=== PATIENT | female | born 1980 | race Caucasian/White ===

== ENCOUNTER 2017-08-21 09:24 | Emergency (ER) | payer OTHER ==
[2017-08-21 10:07] VITALS: BP 145/85
[2017-08-21] MEDS ORDERED: Ibuprofen TAB* 600 MG PO ONE (10:38)
--- NOTE | 2017-08-21 10:43 | UC ---
UC General HPI - HPI Summary HPI Summary: Patient arabella [place], she did drive and was experiencing pain in the left flank, has had some abdominal cramping, she developed a fever and BARRETT felt like" she got hit by a bus" last night, fever of 102.0 - History of Current Complaint Chief Complaint: UCGeneralIllness Stated Complaint: FEVER,ACHY,SIDE PAIN Time Seen by Provider: 08/21/17 10:32 Hx Obtained From: Patient Hx Last Menstrual Period: 07/30/17 Onset/Duration: Sudden Onset, Lasting Days Timing: Constant Onset Severity: Moderate Current Severity: Severe Associated Signs & Symptoms: Positive: Back Pain, Dysuria, Fever, Headache, Nausea - Allergy/Home Medications Allergies/Adverse Reactions: Allergies Allergy/AdvReac Type Severity Reaction Status Date / Time No Known Allergies Allergy Verified 08/24/17 09:15 PMH/Surg Hx/FS Hx/Imm Hx Previously Healthy: Yes - Surgical History Surgical History: Yes Surgery Procedure, Year, and Place: HX KIDNEY STENTS, LITHOTRIPSY, 01/2013, . URETERAL STENT LEFT 01/19/14, [facility] [place] - Family History Known Family History: Positive: Hypertension - Social History Alcohol Use: Rare Alcohol Amount: 1 PER MONTH Substance Use Type: None Smoking Status (MU): Never Smoked Tobacco - Immunization History Most Recent Influenza Vaccination: none 2017 Review of Systems Constitutional: Fever, Fatigue Skin: Negative Eyes: Negative ENT: Negative Respiratory: Negative Cardiovascular: Negative Gastrointestinal: Abdominal Pain, Nausea Genitourinary: Dysuria, Hematuria Motor: Negative Neurovascular: Negative Musculoskeletal: Negative Neurological: Negative Psychological: Negative Is Patient Immunocompromised?: No All Other Systems Reviewed And Are Negative: Yes Physical Exam Triage Information Reviewed: Yes Appearance: Well-Nourished, Ill-Appearing, Pain Distress Vital Signs: Initial Vital Signs Temp 99.6 F 08/21/17 10:01 Pulse 108 08/21/17 10:01 Resp 16 08/21/17 10:01 BP 145/85 08/21/17 10:01 Pulse Ox 99 08/21/17 10:01 Vital Signs Reviewed: Yes Eye Exam: Normal Eyes: Positive: Conjunctiva Inflamed ENT: Positive: Pharynx normal, TMs normal Dental Exam: Normal Neck exam: Normal Neck: Positive: Supple, Nontender, Enlarged Nodes @ - bilateral cervical Respiratory: Positive: Chest non-tender, Lungs clear, Normal breath sounds Cardiovascular Exam: Normal Cardiovascular: Positive: No Murmur, Pulses Normal, Tachycardia Abdomen Description: Positive: Nontender, No Organomegaly, Soft, CVA Tenderness (R) - neg, CVA Tenderness (L) - pos Bowel Sounds: Positive: Present Musculoskeletal Exam: Normal Musculoskeletal: Positive: Strength Intact, ROM Intact, No Edema Neurological Exam: Normal Neurological: Positive: Alert, Muscle Tone Normal Psychological Exam: Normal Skin Exam: Normal Course/Dx - Course Course Of Treatment: hx obtained, exam performed ,meds reviewed, flu swab obtained, UA positive for blood and PRO, CT of abd pelvis performed, large kidney stone and left hydronephosis noted, Patient has a Urologist that follows her. recommend calling today for follow up, patient is in agreement - Differential Dx - Multi-Symptom Provider Diagnoses: fever,. renal stone. left hydronephrosis Discharge - Discharge Plan Condition: Stable Disposition: HOME Patient Education Materials: Kidney Stones (ED), Hydronephrosis (ED) Referrals: No Primary Care Phys,NOPCP [Primary Care Provider] - Additional Instructions: 1. take the medication as prescribed. 2. Follow up with your urologist seema, if pain becomes more severe or you develop worsening symptoms, report to ER
--- NOTE | 2017-08-21 11:59 | RAD ---
CLINICAL HISTORY: Left flank pain and fever. Relevant surgical history includes prior lithotripsy and left ureteral stent. COMPARISON: Most recent comparison CT is dated January 18, 2014 TECHNIQUE: Noncontrast CT examination of the abdomen and pelvis from the lung bases through the initial tuberosities. FINDINGS: VISUALIZED LUNG BASES: The visualized lung bases are grossly clear. There is no pleural effusion. ABDOMEN AND PELVIS: Evaluation of the solid organs and vasculature is limited without intravenous contrast. The liver, spleen, pancreas and adrenal glands are grossly normal in appearance. The gallbladder is normal. There is a nonobstructing punctate calcification at the upper pole of the right kidney. At the mid-level left ureter there is a calcification exhibiting a maximum axial dimension of 6 mm and a maximum cephalocaudal dimension of 8 mm (axial image 124 and coronal image 44). There is moderate left-sided hydronephrosis with perinephric stranding. Additional calcifications are seen in the left kidney, the largest a 6 mm calcification at the mid-level kidney. There are no calcifications seen in the right ureter, urinary bladder or the more distal left ureter. Evaluation of the gastrointestinal tract is limited without oral contrast. The small and large bowel are not distended.The patient's normal appendix is identified in the right lower quadrant with gas in the lumen (coronal image 48). There is no gross retroperitoneal or mesenteric lymphadenopathy. At the left adnexa there is a fluid density structure measuring up to 3.2 cm most consistent with a dominant ovarian follicle in a woman of this age. The abdominal aorta and iliac arteries are normal in course and diameter. Degenerative changes include multilevel loss of intervertebral disc height involving the lower thoracic and lumbar spine.There are no sinister bone lesions. IMPRESSION: At the mid-level left ureter there is a renal calculus measuring 8 mm in largest dimension with ipsilateral hydroureter nephrosis. There are additional bilateral nonobstructing renal calculi, more severe on the left than the right.
== END 2017-08-21 12:22 | disposition home or self-care (01) ==
LOC: UCCORT 09:24
DX: N13.30 Unspecified hydronephrosis (principal); N20.0 Calculus of kidney; R50.9 Fever, unspecified; Z32.02 Encounter for pregnancy test, result negative
CPT/HCPCS: 74176; 81003; 84702; 87502; 99202; A9270-GY; G0463

== ENCOUNTER 2017-08-21 14:29 | Observation (INO) | payer OTHER ==
[2017-08-21 15:45] LABS: Hematocrit 44 % (35-47); Hemoglobin 14.8 g/dl (12.0-16.0); Mean Corpuscular HGB Conc 33 g/dl (31-36); Mean Corpuscular Hemoglobin 29 pg (27-31); Mean Corpuscular Volume 88 fL (80-97); Mean Platelet Volume 9 um3 (7.4-10.4); Red Blood Count 5.02 10^6/ul (4.0-5.4); Red Cell Distribution Width 13 % (10.5-15); White Blood Count 13.3 10^3/ul (3.5-10.8)
[2017-08-21] MEDS: NS 0.9% 1000 ML* 2,000 ML IV ONE (16:20)
[2017-08-21 16:22] LABS: ALT 13 U/L (7-52); AST 13 U/L (13-39); Albumin 4.7 g/dL (3.2-5.2); Alkaline Phosphatase 88 U/L (34-104); Anion Gap 8 mmol/L (2-11); BUN/Creatinine Ratio 12.8 (8-20); Blood Urea Nitrogen 12 mg/dL (6-24); C Reactive Protein 82.58 mg/L (< 5.00); CO2 Carbon Dioxide 25 mmol/L (22-32); Chloride 101 mmol/L (101-111); EGFR African American 86.7 (>60); EGFR Non-African American 67.4 (>60); Globulin 3.6 g/dL (2-4); Glucose 101 mg/dL (70-100); Lipase 14 U/L (11.0-82.0); Potassium 3.7 mmol/L (3.5-5.0); Sodium 134 mmol/L (133-145); Total Protein 8.3 g/dL (6.4-8.9)
[2017-08-21] MEDS ORDERED: cefTRIAXone(*) 2 GM in NS 0.9% 50 ML* 50 ML IVPB ONE (16:23)
[2017-08-21] MEDS ORDERED: Gentamicin ADULT (*) 40 MG/ML VIAL IVPB ONE (16:23)
[2017-08-21] MEDS ORDERED: Metoclopramide IV* 5 MG/ML 2 ML VIAL IV SLOW PU ONE (16:55)
[2017-08-21] MEDS ORDERED: Famotidine IV* 10 MG/ML 2 ML (20 mg) IV ONE (16:55)
[2017-08-21] MEDS ORDERED: Buffered Lidocaine 0.9% SYRIN* 5 ML/SYR SYRINGE INTRADERM ONE (16:55)
[2017-08-21] MEDS ORDERED: GENTAMICIN IVPB ONE ×2 (17:00)
[2017-08-21] MEDS ORDERED: [UNRECOGNIZED DRUG - OTHER] IVPB ONE ×2 (17:00)
[2017-08-21] MEDS ORDERED: Acetaminophen TAB* 325 MG PO PRN (17:03)
[2017-08-21] MEDS ORDERED: Ondansetron INJ* 2 MG/ML VIAL IV PRN ×2 (17:03→18:43)
[2017-08-21] MEDS ORDERED: Morphine INJ* 4 MG/ML 1 ML CARPUJECT IV PRN (17:03)
[2017-08-21] MEDS ORDERED: cefTRIAXone VIAL(*) 1,000 MG in NS 0.9% 50 ML* 50 ML IVPB SCH (17:04)
[2017-08-21] MEDS ORDERED: Metoclopramide IV* 5 MG/ML 2 ML VIAL ONE (17:08)
[2017-08-21] MEDS ORDERED: Sodium Citrate/Citric Acid* 15 ML UDC ONE ×2 (17:08→18:02)
[2017-08-21] MEDS ORDERED: cefTRIAXone(*) 2 GM ADDV.VIAL IVPB ONE (17:09)
[2017-08-21] MEDS ORDERED: Famotidine IV* 10 MG/ML 2 ML (20 mg) ONE (17:13)
[2017-08-21] MEDS ORDERED: NS 0.9% 1000 ML* 1,000 ML IV SCH ×2 (17:15)
[2017-08-21] MEDS ORDERED: Iohexol 180 (CONTRAST) 10 ML SDV IV ONE (17:49)
[2017-08-21] MEDS ORDERED: Gentamicin ADULT (*) 40 MG/ML VIAL ONE (17:54)
--- NOTE | 2017-08-21 18:01 | ED ---
Kelsie Zhong Alfonso, scribed for Ronald Olson MD on 08/21/17 at 1511 . Abdominal Pain/Female - HPI Summary HPI Summary: This patient is a 36 year old F presenting to [facility] referred from [facility] ([facility]) and Dr. Bowen (urologist) accompanied by a female with a chief complaint of sharp left-sided flank pain since one week ago. She had a CT A/P earlier today at [facility] with a radiologist impression of At the mid- level left ureter there is a renal calculus measuring 8 mm in largest dimension with ipsilateral hydroureter nephrosis. There are additional bilateral nonobstructing renal calculi, more severe on the left than the right. The patient rates the pain 6/10 in severity. Symptoms alleviated by nothing. Patient reports fever, chills, N/V, loss of appetite, headache, and urinary urgency. Patient denies cough, and chest congestion. Medications reviewed. Allergies reviewed. - History of Current Complaint Chief Complaint: EDFlankPain Stated Complaint: KIDNEY PAIN-POSS STONE Time Seen by Provider: 08/21/17 15:03 Hx Obtained From: Patient, Medical Records Hx Last Menstrual Period: 07/30/17 Onset/Duration: Gradual Onset, Lasting Weeks - 1, Still Present Timing: Constant Severity Currently: Moderate Pain Intensity: 6 Pain Scale Used: 0-10 Numeric Location: Flank - L Character: Sharp Alleviating Factor(s): Nothing Associated Signs and Symptoms: Positive: Other: - fever, chills, N/V, loss of appetite, headache, and urinary urgency. Patient denies cough, and chest congestion. Allergies/Adverse Reactions: Allergies Allergy/AdvReac Type Severity Reaction Status Date / Time No Known Allergies Allergy Verified 08/21/17 10:00 PMH/Surg Hx/FS Hx/Imm Hx Cardiovascular History: Denies: Other Cardiovascular Problems/Disorders Respiratory History: Denies: Other Respiratory Problems/Disorders GI History: Denies: Other GI Disorders History: Reports: Hx Kidney Stones - LEFT Musculoskeletal History: Denies: Other Musculoskeletal History Sensory History: Denies: Hx Contacts or Glasses, Hx Hearing Aid Opthamlomology History: Denies: Hx Contacts or Glasses Neurological History: Denies: Other Neuro Impairments/Disorders - Surgical History Surgery Procedure, Year, and Place: HX KIDNEY STENTS, LITHOTRIPSY, 01/2013, . URETERAL STENT LEFT 01/19/14, [facility] Hx Anesthesia Reactions: No Infectious Disease History: No Infectious Disease History: Denies: Traveled Outside the [place] in Last 30 Days - Family History Known Family History: Positive: Hypertension - Social History Alcohol Use: Rare Alcohol Amount: 1 PER MONTH Substance Use Type: Reports: None Smoking Status (MU): Never Smoked Tobacco Review of Systems Positive: Fever, Chills Positive: Other - Negative chest congestion. Negative: Cough Positive: Abdominal Pain - L flank, Vomiting, Nausea, Other - loss of appetite Positive: urgency Positive: Headache All Other Systems Reviewed And Are Negative: Yes Physical Exam - Summary Physical Exam Summary: General: mildly ill-appearing, mild pain distress Skin: warm, color reflects adequate perfusion, dry Head: normal Eyes: EOMI, JUAN ALBERTO ENT: normal Neck: supple, nontender Respiratory: CTA, breath sounds present Cardiovascular: Tachycardia Abdomen: soft, nontender abdomen, left CVA tenderness Bowel: present Musculoskeletal: normal, strength/ROM intact Neurological: normal, sensory/motor intact, A&O x3 Psychological: affect/mood appropriate Triage Information Reviewed: Yes Vital Signs On Initial Exam: Initial Vitals Temp Pulse Resp BP Pulse Ox 98.5 F 101 16 142/84 100 08/21/17 14:51 08/21/17 14:51 08/21/17 14:51 08/21/17 14:51 08/21/17 14:51 Vital Signs Reviewed: Yes Diagnostics - Vital Signs Vital Signs Temp Pulse Resp BP Pulse Ox 08/21/17 14:51 98.5 F 101 16 142/84 100 - Laboratory Lab Results: Lab Results 08/21/17 08/21/17 08/21/17 Range/Units 15:36 15:36 15:36 WBC 13.3 H (3.5-10.8) 10^3/ul RBC 5.02 (4.0-5.4) 10^6/ul Hgb 14.8 (12.0-16.0) g/dl Hct 44 (35-47) % MCV 88 (80-97) fL MCH 29 (27-31) pg MCHC 33 (31-36) g/dl RDW 13 (10.5-15) % Plt Count 205 (150-450) 10^3/ul MPV 9 (7.4-10.4) um3 Neut % (Auto) 85.8 H (38-83) % Lymph % (Auto) 8.2 L (25-47) % Bandera % (Auto) 5.5 (1-9) % Eos % (Auto) 0.1 (0-6) % Baso % (Auto) 0.4 (0-2) % Absolute Neuts (auto) 11.4 H (1.5-7.7) 10^3/ul Absolute Lymphs (auto) 1.1 (1.0-4.8) 10^3/ul Absolute Monos (auto) 0.7 (0-0.8) 10^3/ul Absolute Eos (auto) 0 (0-0.6) 10^3/ul Absolute Basos (auto) 0 (0-0.2) 10^3/ul Absolute Nucleated RBC 0 10^3/ul Nucleated RBC % 0 INR (Anticoag Therapy) 0.96 (0.89-1.11) APTT 25.4 L (26.0-36.3) seconds Sodium 134 (133-145) mmol/L Potassium 3.7 (3.5-5.0) mmol/L Chloride 101 (101-111) mmol/L Carbon Dioxide 25 (22-32) mmol/L Anion Gap 8 (2-11) mmol/L BUN 12 (6-24) mg/dL Creatinine 0.94 (0.51-0.95) mg/dL Est GFR ( Amer) 86.7 (>60) Est GFR (Non-Af Amer) 67.4 (>60) BUN/Creatinine Ratio 12.8 (8-20) Glucose 101 H (70-100) mg/dL Lactic Acid (0.5-2.0) mmol/L Calcium 10.0 (8.6-10.3) mg/dL Total Bilirubin 0.50 (0.2-1.0) mg/dL AST 13 (13-39) U/L ALT 13 (7-52) U/L Alkaline Phosphatase 88 (34-104) U/L C-Reactive Protein 82.58 H (< 5.00) mg/L Total Protein 8.3 (6.4-8.9) g/dL Albumin 4.7 (3.2-5.2) g/dL Globulin 3.6 (2-4) g/dL Albumin/Globulin Ratio 1.3 (1-3) Lipase 14 (11.0-82.0) U/L Beta HCG, Quant < 0.60 mIU/mL 08/21/17 Range/Units 15:36 WBC (3.5-10.8) 10^3/ul RBC (4.0-5.4) 10^6/ul Hgb (12.0-16.0) g/dl Hct (35-47) % MCV (80-97) fL MCH (27-31) pg MCHC (31-36) g/dl RDW (10.5-15) % Plt Count (150-450) 10^3/ul MPV (7.4-10.4) um3 Neut % (Auto) (38-83) % Lymph % (Auto) (25-47) % Band[place] % (Auto) (1-9) % Eos % (Auto) (0-6) % Baso % (Auto) (0-2) % Absolute Neuts (auto) (1.5-7.7) 10^3/ul Absolute Lymphs (auto) (1.0-4.8) 10^3/ul Absolute Monos (auto) (0-0.8) 10^3/ul Absolute Eos (auto) (0-0.6) 10^3/ul Absolute Basos (auto) (0-0.2) 10^3/ul Absolute Nucleated RBC 10^3/ul Nucleated RBC % INR (Anticoag Therapy) (0.89-1.11) APTT (26.0-36.3) seconds Sodium (133-145) mmol/L Potassium (3.5-5.0) mmol/L Chloride (101-111) mmol/L Carbon Dioxide (22-32) mmol/L Anion Gap (2-11) mmol/L BUN (6-24) mg/dL Creatinine (0.51-0.95) mg/dL Est GFR ( Amer) (>60) Est GFR (Non-Af Amer) (>60) BUN/Creatinine Ratio (8-20) Glucose (70-100) mg/dL Lactic Acid 0.9 (0.5-2.0) mmol/L Calcium (8.6-10.3) mg/dL Total Bilirubin (0.2-1.0) mg/dL AST (13-39) U/L ALT (7-52) U/L Alkaline Phosphatase (34-104) U/L C-Reactive Protein (< 5.00) mg/L Total Protein (6.4-8.9) g/dL Albumin (3.2-5.2) g/dL Globulin (2-4) g/dL Albumin/Globulin Ratio (1-3) Lipase (11.0-82.0) U/L Beta HCG, Quant mIU/mL Result Diagrams: 08/21/17 15:36 08/21/17 15:36 Lab Statement: Any lab studies that have been ordered have been reviewed, and results considered in the medical decision making process. Abdominal Pain Fem Course/Dx - Course Course Of Treatment: DISCUSSED WITH DR BOWEN, UROLOGY. ABX STARTED. ADMIT PT TO OR FOR STENT. NO CRITICAL CARE TIME. - Diagnoses Provider Diagnoses: Kidney stone on left side, Fever - Provider Notifications Discussed Care Of Patient With: Leandro Bowen Time Discussed With Above Provider: 15:21 Instructed by Provider To: Other - Consulted Dr. Bowen (urologist) at 1521 regarding the patient's case. Consulted Dr. Duffy (hospitalist) 0151 who agrees to admit. Discharge - Discharge Plan Condition: Stable Disposition: ADMITTED TO [facility] documentation as recorded by the Kelsie sosa Alfonso accurately reflects the service I personally performed and the decisions made by me, Ronald Olson MD.
[2017-08-21] MEDS ORDERED: Midazolam* 1 MG/ML 5 ML VIAL (5 MG) ONE (18:10)
[2017-08-21] MEDS ORDERED: fentaNYL* 50 MCG/ML 5 ML VIAL (250 MCG VIAL) ONE (18:10)
[2017-08-21] MEDS ORDERED: Lidocaine 2% PF * 5 ML VIAL ONE (18:12)
[2017-08-21] MEDS ORDERED: Propofol* 10 MG/ML 20 ML BTL IV PUSH ONE (18:12)
[2017-08-21] MEDS ORDERED: Ketorolac INJ* 30 MG/ML 1 ML VIAL ONE (18:20)
[2017-08-21] MEDS ORDERED: fentaNYL* 50 MCG/ML 2 ML VIAL (100 MCG VIAL) IV PRN (18:43)
[2017-08-21] MEDS ORDERED: oxyCODONE TAB* 5 MG TAB PO PRN (18:43)
[2017-08-21] MEDS ORDERED: Acetaminophen IV 1GM/100ML * 100 ML IVPB ONE (18:43)
[2017-08-21] MEDS ORDERED: Acetaminophen IV 1GM/100ML * 100 ML ONE (18:43)
[2017-08-21] MEDS ORDERED: PROCHLORPERAZINE INJ 5 MG/ML 2 ML VIAL IV PRN (18:43)
--- NOTE | 2017-08-21 22:41 | HP ---
HISTORY AND PHYSICAL: DATE OF ADMISSION: 08/21/17 PRIMARY CARE PROVIDER: Unknown. CHIEF COMPLAINT: Left flank pain. HISTORY OF PRESENT ILLNESS: Ms. Yo is a 36-year-old female who has a known history of kidney stones, last being treated with lithotripsy approximately 2 years ago, who presents to the emergency room with complaints of left-sided flank pain that has been ongoing for approximately 1 week. The patient states that the evening prior to admission, she spiked a fever to 102.3. She has since felt very nauseous. In addition, her appetite has been very poor, eating only a few crackers and attempts toast earlier today. The patient states that currently she is feeling very chilled. The patient denies any significant dysuria however. PAST MEDICAL HISTORY: Kidney stones. PAST SURGICAL HISTORY: 1. Lithotripsy. 2. Uterine polyp removal. MEDICATIONS: None. ALLERGIES: No known drug allergies. FAMILY HISTORY: Mom is living, she is healthy; however, she too has a history of kidney stones. Dad is also living, he is also healthy. SOCIAL HISTORY: The patient is a nonsmoker. She drinks alcohol rarely. She works at the [employer]. She is . Her is in the service and is going to be deployed shortly. She has 1 child. She indicates that her mom, Fannie would be her healthcare proxy. REVIEW OF SYSTEMS: A complete 11-system review of systems is obtained. Pertinent positives and negatives are as per HPI and otherwise negative. PHYSICAL EXAMINATION GENERAL: The patient is a well-developed, young female, lying in the stretcher , appearing flushed in the face and warm to touch, but in no acute distress. VITAL SIGNS: Blood pressure 157/79, pulse 99, respirations 13, temp 98.5, O2 sat 99% on room air. HEENT: Pupils are equal, they are round. Extraocular muscles are intact. Oropharynx is clear. Oral mucosa is moist. There is no submandibular, cervical , or supraclavicular adenopathy. Thyroid is not enlarged. No thyroid nodules are noted. PULMONARY: Lungs are clear to auscultation bilaterally. CARDIAC: Normal S1 and S2. Regular rate and rhythm. No murmurs, rubs, or gallops. There is no lower extremity edema. ABDOMEN: Bowel sounds are present. Abdomen is soft, nontender, and nondistended. There is left flank tenderness. MUSCULOSKELETAL: There is no cyanosis or clubbing of the digits. There is full active range of motion of all 4 extremities. SKIN: Hot to touch. There are no rashes. NEURO: Cranial nerves II through XII are grossly intact. Sensation is intact to light touch throughout. Strength is 5/5 and symmetric in both upper and lower extremities bilaterally. PSYCH: The patient is alert. She is oriented x3. Affect appears appropriate. DIAGNOSTIC STUDIES/LAB DATA: WBC 13.3, hemoglobin 14.8, hematocrit 44, platelets 205. INR 0.96, PTT 25.4. Sodium 134, potassium 3.7, chloride 101, CO2 25, BUN 12, creatinine 0.94, glucose 101. Lactic acid 0.9. Calcium 10.0, bilirubin 0.5, AST 13, ALT 13, alk phos 88, CRP 82.58, albumin 4.7, lipase 14. Urinalysis from urgent care today reveals 1+ protein, trace ketones, 2+ blood, otherwise negative for leukocyte esterase and nitrites. CT abdomen and pelvis reveals a renal calculus measuring 8 mm in the largest dimension in the left midureter with ipsilateral hydroureter and nephrosis. There are additional bilateral nonobstructing renal calculi more severe on the left than the right. ASSESSMENT AND PLAN: Ms. Yo is a 36-year-old female with a history of kidney stones in the past that have required lithotripsy, who presents to the emergency room with complaints of approximately 1-week of ongoing left-sided flank pain, though spiking of fever to 102.3 the day prior to admission, now feeling quite chilled and found to have an elevated white blood cell count and obstructing left ureteral calculus. 1. Left obstructing ureteral calculus. The patient is going to be taken urgently to the operating room by Dr. Bowen for stent placement. She will likely need definitive therapy of her stone at a later date. Given the patient' s history of fever to 102.3 the night prior to admission and currently she feels quite warm, though very chilled. I do feel it is best to admit the patient to the hospital under observation status following her procedure. We will await urine culture. The patient will receive gentamicin and ceftriaxone prior to going into the OR. She will then continue on ceftriaxone following this. I suspect, she will need full course of antibiotics following the stent placement. 2. DVT prophylaxis. According to the Adult Thrombosis Prophylaxis Risk Factor Assessment Guide, the patient has a total risk factor score of 1, making her low risk. SCDs will be utilized as DVT prophylaxis. 3. Code status is full and again, the patient indicates that her mom is her healthcare proxy. TIME SPENT: Fifty minutes were spent admitting this patient. [id number]/[facility] #: [id number] XUAN
[2017-08-21] MEDS ORDERED: SUMAtriptan TAB* 50 MG PO ONE (22:48)
[2017-08-21 23:39] LABS: Urine Bacteria Absent (Absent); Urine Bilirubin Negative (Negative); Urine Glucose Negative (Negative); Urine Nitrite Negative (Negative)
--- NOTE | 2017-08-22 00:51 | CONS ---
UROLOGY CONSULTATION: DATE OF CONSULT: 08/21/17 REQUESTING PHYSICIAN: Dr. Ronald Olson. DIAGNOSES: 1. Obstructing calculus, left ureter. 2. Urosepsis. HISTORY OF PRESENT ILLNESS: Tory Yo is a 36-year-old lady with a history of recurrent renal calculi. I had last seen her over 2 years ago and because of relocation of her 's job, she had transferred out of [place]. She had left flank pain for the last several days and states that she had a temperature of 102.6 last night. She went to the [facility] in [place] this morning and was then transferred to the [facility] Emergency Room. In the emergency room, her temperature was normal, although she was slightly tachycardic. A CT scan done earlier today had revealed 8-mm obstructing calculus in the left mid ureter in addition to bilateral renal calculi. My plan was to proceed with urgent left stent insertion, possible ureteroscopy, but while she was in the holding area, her temperature was rechecked and was found to be 40.2 degree Celsius. This is consistent with sepsis and the plan is for urgent left stent insertion (to be followed at some point in the near future by lithotripsy) after appropriate treatment of the urinary infection. PAST MEDICAL HISTORY: Significant for: 1. Recurrent renal calculi. 2. Migraines. MEDICATIONS ON ADMISSION: Imitrex p.r.n. ALLERGIES: No known drug allergies. REVIEW OF SYSTEMS: She denies any chest pain or shortness of breath. There is no history of diabetes mellitus or any other major systemic illness. PHYSICAL EXAM: Reveals an obviously uncomfortable appearing young lady. Blood pressure is 170/92, heart rate 104 per minute, temperature 40.2 degrees Celsius. Cardiovascular Exam: Regular rate and rhythm, tachycardiac. S1 and S2. Lungs are clear bilaterally. Abdomen is soft with left flank tenderness. DIAGNOSTIC STUDIES/LAB DATA: I reviewed the labs and imaging studies and the overall picture is consistent with an obstructing left ureteral calculus with urosepsis. PLAN: Plan is for urgent left stent insertion (to be followed in near future by shockwave or laser lithotripsy depending on postoperative x-ray findings) after treatment of the urinary tract infection. [id number]/[facility] #: [id number] [facility]
[2017-08-22] MEDS ORDERED: Ibuprofen TAB* 600 MG PO ONE (03:38)
[2017-08-22 06:10] LABS: Hematocrit 36 % (35-47); Hemoglobin 11.9 g/dl (12.0-16.0); Mean Corpuscular HGB Conc 34 g/dl (31-36); Mean Corpuscular Hemoglobin 29 pg (27-31); Mean Corpuscular Volume 88 fL (80-97); Mean Platelet Volume 9 um3 (7.4-10.4); Red Blood Count 4.06 10^6/ul (4.0-5.4); Red Cell Distribution Width 13 % (10.5-15); White Blood Count 10.1 10^3/ul (3.5-10.8)
[2017-08-22 06:31] LABS: BUN/Creatinine Ratio 10.7 (8-20); Calcium 8.7 mg/dL (8.6-10.3); EGFR African American 112.4 (>60); EGFR Non-African American 87.4 (>60); Potassium 3.6 mmol/L (3.5-5.0)
[2017-08-22] MEDS ORDERED: cefTRIAXone VIAL(*) 1,000 MG in NS 0.9% 50 ML* 50 ML IVPB SCH (08:00)
[2017-08-22] MEDS ORDERED: SUMAtriptan TAB* 50 MG PO ONE (08:00)
--- NOTE | 2017-08-22 08:58 | OP ---
DATE OF OPERATION: 08/21/17 - ROOM #332 DATE OF : [age] years, female. SURGEON: Leandro Bowen MD ANESTHESIOLOGIST: Dr. Marmolejo ANESTHESIA: Intravenous sedation. PRE-OP DIAGNOSES: 1. Obstructing calculus, left ureter. 2. Bilateral renal calculi. 3. Urosepsis. POST-OP DIAGNOSES: 1. Obstructing calculus, left ureter. 2. Bilateral renal calculi. 3. Urosepsis. OPERATIVE PROCEDURE: 1. Cystoscopy. 2. Left retrograde pyelogram. 3. Left ureteral calculus manipulation. 4. Left stent insertion. COMPLICATIONS: None. POSTOPERATIVE CONDITION: Stable. STENT USED: A 7-[place] stent, left ureter. INDICATIONS: Tory Yo is a 36-year-old lady with a history of recurrent bilateral renal calculi. She was recently evaluated for left flank pain and was noted to have an obstructing calculus in the left mid ureter in addition to bilateral renal calculi. In addition, in the preoperative holding area, her temperature increased to over a 104, and she is now being brought in for urgent left stent insertion to be followed in the future by lithotripsy. DESCRIPTION OF PROCEDURE: After induction of intravenous sedation, the patient was placed in dorsal lithotomy position. Sequential compression devices were in place and functioning. Initial cystoscopy revealed a normal appearing bladder. Clear efflux of urine was noted from the right orifice. There was no efflux noted from the left orifice. obstruction. A guidewire was introduced into the left ureter. Retrograde pyelogram revealed fullness of the left collecting system. I only wanted to do a limited retrograde in an effort to minimize bacteremia. The open ended catheter was advanced beyond the obstructing calculus into the renal pelvis and urine was obtained from the renal pelvis and sent for culture. The calculus was carefully manipulated slightly proximally to facilitate placement of the stent, and a 7-[place] stent was introduced and positioned under fluoroscopy with good proximal and distal positioning obtained. The patient tolerated the procedure satisfactorily and was transferred back to the recovery area in stable condition. [id number]/[facility] #: [id number] [facility]
--- NOTE | 2017-08-22 10:36 | RAD ---
INDICATION: Left ureteral stent placement COMPARISON: None FINDINGS: 7 seconds of fluoroscopy were provided for the urology department. Fluoroscopic spot imaging of the abdomen were obtained for operative control and show left ureteral stent placement in expected position. The collecting system is decompressed . CPT II Codes: 6045F (fluoro time doc)
--- NOTE | 2017-08-22 10:41 | RAD ---
INDICATION: Follow-up imaging in a patient with a left ureteral stent placement for stone COMPARISON: Intraoperative pyelography dated August 21, [address] abdomen and pelvis August 21, 2017 TECHNIQUE: A single AP view of the abdomen was obtained FINDINGS: The left ureteral stent is anatomically aligned in the AP projection. The 8 mm calcification identified at the mid-level left ureter on the previous CT examination is not definitely identified today. Small densities overlying the left collecting system appeared to correspond to the nonobstructing calculi seen on the prior CT. A round density immediately lateral to the distal loop of the stent correspond to a phlebolith seen on the previous CT. IMPRESSION: ANATOMIC ALIGNMENT OF LEFT URETERAL STENT.
--- NOTE | 2017-08-22 11:25 | PN ---
Subjective Date of Service: 08/22/17 Interval History: Pt is feeling quite a bit better. She had a fever with chills early this AM but has been fine since. She feels she can go home. Objective Active Medications: Acetaminophen (Tylenol Tab*) 650 mg PO Q4H PRN PRN Reason: PAIN Last Admin: 08/22/17 02:10 Dose: 650 mg Ceftriaxone Sodium 1,000 mg/ (Sodium Chloride) 50 mls @ 200 mls/hr IVPB Q24H COUNTS INCLUDE 234 BEDS AT THE [facility] Last Admin: 08/22/17 08:09 Dose: 200 mls/hr Lactated Ringer's (Lactated Ringers 1000 Ml Bag*) 1,000 mls @ 250 mls/hr IV PER RATE COUNTS INCLUDE 234 BEDS AT THE [facility] Last Admin: 08/22/17 07:53 Dose: 250 mls/hr Morphine Sulfate (Morphine Inj (Syringe)*) 4 mg IV Q4H PRN PRN Reason: PAIN Ondansetron HCl (Zofran Inj*) 4 mg IV Q6H PRN PRN Reason: NAUSEA Oxycodone HCl (Roxycodone Tab*) 5 mg PO ONCE PRN PRN Reason: PAIN - MODERATE Stop: 08/22/17 18:44 Vital Signs 08/21/17 08/21/17 08/21/17 18:38 19:00 19:09 Temperature 100.8 F 100.0 F Pulse Rate 105 99 Respiratory 16 16 Rate Blood Pressure 134/92 128/89 (mmHg) O2 Sat by Pulse 100 96 Oximetry 08/21/17 08/21/17 08/21/17 19:30 19:59 20:11 Temperature 100.4 F 98.8 F 98.8 F Pulse Rate 96 91 91 Respiratory 16 16 16 Rate Blood Pressure 129/83 134/76 134/76 (mmHg) O2 Sat by Pulse 94 96 96 Oximetry 08/21/17 08/21/17 08/21/17 21:09 22:13 22:35 Temperature 97.6 F 97.9 F Pulse Rate 88 91 Respiratory 16 16 16 Rate Blood Pressure 145/90 117/68 (mmHg) O2 Sat by Pulse 99 98 Oximetry 08/22/17 08/22/17 08/22/17 00:09 00:51 02:04 Temperature 99.1 F 99.2 F 101.5 F Pulse Rate 92 110 Respiratory 16 16 Rate Blood Pressure 144/63 157/73 (mmHg) O2 Sat by Pulse 99 100 Oximetry 08/22/17 08/22/17 08/22/17 03:16 04:58 06:23 Temperature 101.5 F 99.7 F 98.0 F Pulse Rate 106 110 95 Respiratory 18 16 Rate Blood Pressure 160/75 151/72 147/78 (mmHg) O2 Sat by Pulse 98 99 97 Oximetry 08/22/17 08/22/17 07:00 08:00 Temperature 97.9 F Pulse Rate 89 Respiratory 16 16 Rate Blood Pressure 150/83 (mmHg) O2 Sat by Pulse 96 96 Oximetry Oxygen Devices in Use Now: None Appearance: Young female lying in bed, NAD Eyes: PERRLA Ears/Nose/Mouth/Throat: Mucous Membranes Moist Respiratory: Symmetrical Chest Expansion and Respiratory Effort, Clear to Auscultation Cardiovascular: NL Sounds; No Murmurs; No JVD, RRR, No Edema Abdominal: NL Sounds; No Tenderness; No Distention Extremities: No Clubbing, Cyanosis Skin: No Rash or Ulcers, No Nodules or Sclerosis Neurological: Alert and Oriented x 3 Result Diagrams: 08/22/17 05:14 08/22/17 05:14 Additional Lab and Data: Lab Results 08/21/17 08/21/17 08/21/17 Range/Units 15:36 15:36 15:36 WBC 13.3 H (3.5-10.8) 10^3/ul RBC 5.02 (4.0-5.4) 10^6/ul Hgb 14.8 (12.0-16.0) g/dl Hct 44 (35-47) % MCV 88 (80-97) fL MCH 29 (27-31) pg MCHC 33 (31-36) g/dl RDW 13 (10.5-15) % Plt Count 205 (150-450) 10^3/ul MPV 9 (7.4-10.4) um3 Neut % (Auto) 85.8 H (38-83) % Lymph % (Auto) 8.2 L (25-47) % [place] % (Auto) 5.5 (1-9) % Eos % (Auto) 0.1 (0-6) % Baso % (Auto) 0.4 (0-2) % Absolute Neuts (auto) 11.4 H (1.5-7.7) 10^3/ul Absolute Lymphs (auto) 1.1 (1.0-4.8) 10^3/ul Absolute Monos (auto) 0.7 (0-0.8) 10^3/ul Absolute Eos (auto) 0 (0-0.6) 10^3/ul Absolute Basos (auto) 0 (0-0.2) 10^3/ul Absolute Nucleated RBC 0 10^3/ul Nucleated RBC % 0 INR (Anticoag Therapy) 0.96 (0.89-1.11) APTT 25.4 L (26.0-36.3) seconds Sodium 134 (133-145) mmol/L Potassium 3.7 (3.5-5.0) mmol/L Chloride 101 (101-111) mmol/L Carbon Dioxide 25 (22-32) mmol/L Anion Gap 8 (2-11) mmol/L BUN 12 (6-24) mg/dL Creatinine 0.94 (0.51-0.95) mg/dL Est GFR ( Amer) 86.7 (>60) Est GFR (Non-Af Amer) 67.4 (>60) BUN/Creatinine Ratio 12.8 (8-20) Glucose 101 H (70-100) mg/dL Lactic Acid (0.5-2.0) mmol/L Calcium 10.0 (8.6-10.3) mg/dL Total Bilirubin 0.50 (0.2-1.0) mg/dL AST 13 (13-39) U/L ALT 13 (7-52) U/L Alkaline Phosphatase 88 (34-104) U/L C-Reactive Protein 82.58 H (< 5.00) mg/L Total Protein 8.3 (6.4-8.9) g/dL Albumin 4.7 (3.2-5.2) g/dL Globulin 3.6 (2-4) g/dL Albumin/Globulin Ratio 1.3 (1-3) Lipase 14 (11.0-82.0) U/L Beta HCG, Quant < 0.60 mIU/mL 08/21/17 Range/Units 15:36 WBC (3.5-10.8) 10^3/ul RBC (4.0-5.4) 10^6/ul Hgb (12.0-16.0) g/dl Hct (35-47) % MCV (80-97) fL MCH (27-31) pg MCHC (31-36) g/dl RDW (10.5-15) % Plt Count (150-450) 10^3/ul MPV (7.4-10.4) um3 Neut % (Auto) (38-83) % Lymph % (Auto) (25-47) % [place] % (Auto) (1-9) % Eos % (Auto) (0-6) % Baso % (Auto) (0-2) % Absolute Neuts (auto) (1.5-7.7) 10^3/ul Absolute Lymphs (auto) (1.0-4.8) 10^3/ul Absolute Monos (auto) (0-0.8) 10^3/ul Absolute Eos (auto) (0-0.6) 10^3/ul Absolute Basos (auto) (0-0.2) 10^3/ul Absolute Nucleated RBC 10^3/ul Nucleated RBC % INR (Anticoag Therapy) (0.89-1.11) APTT (26.0-36.3) seconds Sodium (133-145) mmol/L Potassium (3.5-5.0) mmol/L Chloride (101-111) mmol/L Carbon Dioxide (22-32) mmol/L Anion Gap (2-11) mmol/L BUN (6-24) mg/dL Creatinine (0.51-0.95) mg/dL Est GFR ( Amer) (>60) Est GFR (Non-Af Amer) (>60) BUN/Creatinine Ratio (8-20) Glucose (70-100) mg/dL Lactic Acid 0.9 (0.5-2.0) mmol/L Calcium (8.6-10.3) mg/dL Total Bilirubin (0.2-1.0) mg/dL AST (13-39) U/L ALT (7-52) U/L Alkaline Phosphatase (34-104) U/L C-Reactive Protein (< 5.00) mg/L Total Protein (6.4-8.9) g/dL Albumin (3.2-5.2) g/dL Globulin (2-4) g/dL Albumin/Globulin Ratio (1-3) Lipase (11.0-82.0) U/L Beta HCG, Quant mIU/mL Assess/Plan/Problems-Billing Ms Yo is a 36 yo F who has a h/o kidney stones and migraines who presented to the ER with c/o L flank pain and fever and was found to have an obstructing L ureteral stone and was admitted following L ureter stent placement for concerns of associated infection. - Patient Problems (1) Left ureteral calculus Current Visit: Yes Status: Acute Code(s): N20.1 - CALCULUS OF URETER SNOMED Code(s): 69853397 Comment: S/P stent placement last evening. She will follow up with Dr. Bowen on d/c for treatment of her stones (multiple seen in both kidneys) and stent removal. (2) UTI (urinary tract infection) Current Visit: Yes Status: Acute Comment: The patient spiked a fever prior to going into the OR and again overnight. She is now afebrile and her WBC count normalized. Will d/c pt home to complete a full course of vantin. Urine culture will need to be followed up on. (3) Migraines Current Visit: Yes Status: Acute Code(s): G43.909 - MIGRAINE, UNSP, NOT INTRACTABLE, WITHOUT STATUS MIGRAINOSUS SNOMED Code(s): 49475894 Comment: Continue prn imitrex. (4) DVT prophylaxis Current Visit: Yes Status: Acute Code(s): AXP7244 - SNOMED Code(s): 885715182 Comment: SCDs (5) Full code status Current Visit: Yes Status: Acute Code(s): Z78.9 - OTHER SPECIFIED HEALTH STATUS SNOMED Code(s): 642561179 Status and Disposition: d/c home
[2017-08-22 11:29] VITALS: BP 119/63
== END 2017-08-22 12:00 | disposition home or self-care (01) ==
LOC: ED 14:29 → OR 16:41 → SSU 17:03
PROVIDERS: ADMIT Hospitalist; ATTEND Hospitalist
DX: N20.2 Calculus of kidney with calculus of ureter (principal)
CPT/HCPCS: 36415; 74000; 74420; 80048; 80053; 81003; 81015; 83605; 83690; 84702; 85025; 85027; 85610; 85730; 86140; 87040; 87086; 96365; 99283; A9270-GY; C1876; G0378; J0696; J1580; J1885; J2250; J2704; J2765; J3010

== ENCOUNTER → 2017-08-27 10:39 | Day surgery (SDC) | payer OTHER ==
[~2017-08-27 10:39] MED LIST: Buffered Lidocaine 0.9% SYRIN* 5 ML/SYR SYRINGE INTRADERM ONE; Buffered Lidocaine 0.9% SYRIN* 5 ML/SYR SYRINGE ONE; Clindamycin 900 MG IVPREMIX(* 0 MG/0 ML SDV IV ONE; Dexamethasone IV* 4 MG/ML 1 ML (4 MG) IV SLOW PU ONE; Dexamethasone IV* 4 MG/ML 1 ML (4 MG) ONE; DiMENhydriNATE IV* 50 MG/ML VIAL IV PUSH PRN; Famotidine IV* 10 MG/ML 2 ML (20 mg) IV ONE; Famotidine IV* 10 MG/ML 2 ML (20 mg) ONE; Midazolam* 1 MG/ML 2 ML VIAL (2 MG) ONE; Ondansetron INJ* 2 MG/ML VIAL ONE; Propofol* 10 MG/ML 20 ML BTL IV PUSH ONE; cefTRIAXone(*) 2 GM ADDV.VIAL IVPB ONE; fentaNYL* 50 MCG/ML 2 ML VIAL (100 MCG VIAL) IV PRN; fentaNYL* 50 MCG/ML 2 ML VIAL (100 MCG VIAL) ONE; oxyCODONE/Acetamin 5/325 MG* TAB ONE
[2017-08-27 14:33] VITALS: BP 146/95
--- NOTE | 2017-08-27 21:55 | OP ---
DATE OF OPERATION: 08/27/17 - [facility] DATE OF : 80 SURGEON: Leandro Bowen MD ANESTHESIOLOGIST: Elan Nolan MD ANESTHESIA: General. PRE-OP DIAGNOSIS: Left renal calculi. POST-OP DIAGNOSIS: Left renal calculi. OPERATIVE PROCEDURE: Shock wave lithotripsy of left renal calculi. INDICATIONS: Tory Yo is a 36-year-old lady who had undergone urgent left stent insertion for an obstructing calculus in the left proximal ureter. At that time, she was also noted to have an additional left renal calculus and is now being brought in for shock wave lithotripsy. COMPLICATIONS: None. POSTOPERATIVE CONDITION: Stable. DESCRIPTION OF PROCEDURE: After induction of general anesthesia, the patient was placed on lithotripsy table in the supine position. The obstructing calculus which had been in the proximal ureter now appeared to be in the upper to mid pole area of the left kidney with an additional calculus in the mid to lower pole. Shock wave lithotripsy was commenced at a rate of 90 shocks per minute. After the initial 300 shocks, there was a pause in lithotripsy for several minutes in an effort to minimize any potential trauma to the kidney. Lithotripsy was then resumed. A total of 2400 shocks were administered and were distributed between the 2 calculi and good fragmentation was noted at the end of the procedure. The plan is to leave the stent in for an additional week and then to do stent removal followed by imaging to assess clearance of the fragments from the kidney. The patient tolerated the procedure satisfactorily and was transferred back to the recovery area in stable condition. [id number]/[facility] #: [id number] [facility]IMIN[facility] INSANEYara
== END | disposition home or self-care (01) ==
LOC: OR 10:39
PROVIDERS: ATTEND Urology
DX: N20.0 Calculus of kidney (principal); Z68.31 Body mass index [BMI] 31.0-31.9, adult
CPT/HCPCS: A9270-GY; J0696; J1100; J2250; J2405; J2704; J3010

== ENCOUNTER 2018-01-03 10:38 | Emergency (ER) | payer OTHER ==
[2018-01-03 12:05] VITALS: BP 146/95
--- NOTE | 2018-01-03 12:25 | UC ---
Back Pain HPI - HPI Summary HPI Summary: right lower back pain x 1 day radiating to right hip pain with movement, better with rest, no dysuria, no abdominal pain - History of Current Complaint Chief Complaint: UCBackPain Stated Complaint: LOW BACK PAIN Time Seen by Provider: 01/03/18 12:07 Hx Obtained From: Patient Hx Last Menstrual Period: 12/06/17 Onset/Duration: Gradual Onset, Lasting Days - 1, Still Present Timing: Constant Severity Initially: Moderate Severity Currently: Moderate Pain Intensity: 6 Back Pain: Is Discrete @ - right lower back, Radiates To - right hip Character: Aching, Spasmodic Alleviating Factor(s): Rest Associated Signs And Symptoms: Negative: Swelling, Redness, Bruising, Fever, Weakness, Numbness, Tingling, Abdominal Pain, Flank Pain, Bladder Incontinence, Bowel Incontinence, Weight Loss, Pain with Weight Bearing - Allergies/Home Medications Allergies/Adverse Reactions: Allergies Allergy/AdvReac Type Severity Reaction Status Date / Time No Known Allergies Allergy Verified 08/27/17 11:22 Home Medications: Home Medications Ibuprofen 01/03/18 [History] PMH/Surg Hx/FS Hx/Imm Hx GI/ History: Kidney Stones - Surgical History Surgical History: Yes Surgery Procedure, Year, and Place: HX URINARY STENTS AND LITHOTRIPSY X9 - [facility] - Family History Known Family History: Positive: Hypertension - Social History Alcohol Use: Rare Alcohol Amount: 1 PER MONTH Substance Use Type: None Smoking Status (MU): Never Smoked Tobacco - Immunization History Most Recent Influenza Vaccination: none Most Recent Pneumonia Vaccination: none Review of Systems Constitutional: Negative Skin: Negative Eyes: Negative ENT: Negative Respiratory: Negative Cardiovascular: Negative Gastrointestinal: Negative Genitourinary: Negative Is Patient Immunocompromised?: No All Other Systems Reviewed And Are Negative: Yes Physical Exam Triage Information Reviewed: Yes Appearance: Well-Nourished, Pain Distress Vital Signs: Initial Vital Signs Temp 98.2 F 01/03/18 11:58 Pulse 69 01/03/18 11:58 Resp 16 01/03/18 11:58 BP 146/95 01/03/18 11:58 Pulse Ox 99 01/03/18 11:58 Vital Signs Reviewed: Yes Eyes: Positive: Conjunctiva Clear ENT: Positive: Normal ENT inspection, Hearing grossly normal, Pharynx normal Neck: Positive: Supple, Nontender, No Lymphadenopathy Respiratory: Positive: Chest non-tender, Lungs clear, Normal breath sounds Cardiovascular: Positive: RRR, No Murmur, Pulses Normal Abdominal Exam: Normal Abdomen Description: Positive: Nontender, Soft. Negative: CVA Tenderness (R), CVA Tenderness (L), Distended, Guarding Bowel Sounds: Positive: Present Musculoskeletal: Positive: Other: - lower back : no swelling, no erythema, + tenderness right lower back ,, pain with flexion and extension Back Pain Course/Dx - Differential Dx/Diagnosis Provider Diagnoses: lower back strain Discharge - Discharge Plan Condition: Stable Disposition: HOME Prescriptions: Cyclobenzaprine TAB* [Flexeril 10 MG TAB*] 10 mg PO BID PRN #20 tab PRN Reason: Pain Naproxen Sodium [Naproxen Sodium ER] 500 mg PO BID #20 tbmp.24hr Patient Education Materials: Low Back Strain (ED) Referrals: Eri Sinclair MD [Primary Care Provider] - 7 Days
== END 2018-01-03 12:21 | disposition home or self-care (01) ==
LOC: UCCORT 10:38
DX: S39.012A Strain of muscle, fascia and tendon of lower back, initial encounter (principal); X58.XXXA Exposure to other specified factors, initial encounter; Y93.9 Activity, unspecified; Y92.9 Unspecified place or not applicable
CPT/HCPCS: 81003; 99212; G0463

== ENCOUNTER 2018-06-22 12:10 | Emergency (ER) | payer OTHER ==
[2018-06-22 12:48] VITALS: BP 151/99
--- NOTE | 2018-06-22 13:01 | UC ---
Laceration HPI - HPI Summary HPI Summary: 37 y/o female presents to the urgent care c/o constant bleeding from her clitoris s/p getting a piercing in her clitoris yesterday around 1600pm. Pt reports she went home in [place] and she noticed her pants were dripping in blood. She put 1 pad and bleeding didn't stopped. She has applied multiple pads and applying pressure and bleeding has not stopped. She removed piercing today around 1100am. Pt denies fever, pain, dizziness, SOB, chest pain, abdominal pain, N/V/D, taking Blood thinners or Hx coagulation disordered. LMP: 06/14/2018 and she still has it. - History Of Current Complaint Chief Complaint: UCGeneralIllness Stated Complaint: PIERCING WON'T STOP BLEEDING Time Seen by Provider: 06/22/18 13:00 Hx Obtained From: Patient Hx Last Menstrual Period: 06/15/18 Mechanism Of Injury: Sharp Trauma - piercing application Onset/Duration: Sudden Onset, Lasting Days - 1 day, Still Present Severity: Mild Pain Intensity: 0 Pain Scale Used: 0-10 Numeric Aggravating Factors: Movement Full Body (No Head): 1 - clitoris - Allergies/Home Medications Allergies/Adverse Reactions: Allergies Allergy/AdvReac Type Severity Reaction Status Date / Time No Known Allergies Allergy Verified 06/22/18 12:42 PMH/Surg Hx/FS Hx/Imm Hx Previously Healthy: Yes GI/ History: Kidney Stones Neurological History: Migraine - Surgical History Surgical History: Yes Surgery Procedure, Year, and Place: HX URINARY STENTS AND LITHOTRIPSY X9 - [facility] - Family History Known Family History: Positive: Hypertension - Social History Occupation: Employed Full-time Lives: With Family Alcohol Use: Rare Alcohol Amount: 1 PER MONTH Substance Use Type: None Smoking Status (MU): Never Smoked Tobacco - Immunization History Most Recent Influenza Vaccination: none Most Recent Pneumonia Vaccination: none Hx Tetanus, Diphtheria Vaccination: Yes Review of Systems Constitutional: Negative Skin: Other - active bleeding in the clitoris s/p piercing Eyes: Negative ENT: Negative Respiratory: Negative Cardiovascular: Negative Gastrointestinal: Negative Genitourinary: Negative Motor: Negative Neurovascular: Negative Musculoskeletal: Negative Neurological: Negative Psychological: Negative Is Patient Immunocompromised?: No All Other Systems Reviewed And Are Negative: Yes Physical Exam Triage Information Reviewed: Yes Appearance: Well-Appearing, No Pain Distress, Well-Nourished Vital Signs: Initial Vital Signs Temp 98.1 F 06/22/18 12:43 Pulse 84 06/22/18 12:43 Resp 16 06/22/18 12:43 BP 151/99 06/22/18 12:43 Pulse Ox 100 06/22/18 12:43 Vital Signs Reviewed: Yes Eye Exam: Normal ENT Exam: Normal Dental Exam: Normal Neck exam: Normal Respiratory Exam: Normal Cardiovascular Exam: Normal Abdominal Exam: Normal Abdomen Description: Positive: Nontender, No Organomegaly, Soft. Negative: CVA Tenderness (R), CVA Tenderness (L) Bowel Sounds: Positive: Present Pelvic Exam: Positive: Active Bleeding Laceration Course/Dx - Course/Dx Course Of Treatment: 37 y/o female presents to the urgent care c/o constant bleeding from her clitoris s/p getting a piercing in her clitoris yesterday around 1600pm. Pt reports she went home in [place] and she noticed her pants were dripping in blood. She put 1 pad and bleeding didn't stopped. She has applied multiple pads and applying pressure and bleeding has not stopped. She removed piercing today around 1100am. Pt denies fever, pain, dizziness, SOB, chest pain, abdominal pain, N/V/D, taking Blood thinners or Hx coagulation disordered. LMP: 06/14/2018 and she still has it. Pt w/ active bleeding at the top of clitoris s/p piercing placement, non tender to palpation or swelling observed on examination. - Differential Dx - Laceration/Wound Differental Diagnoses: Abrasion, Hematoma, Laceration, Other - bleeding Discharge - Discharge Plan Referrals: Eri Sinclair MD [Primary Care Provider] -
[2018-06-22] MEDS ORDERED: Gelfoam 12-7 ADSORBABL SPONGE* 1 EA SPONGE TOPICAL ONE (13:33)
[2018-06-22] MEDS ORDERED: Gelfoam Sponge SIZE 100* SPONGE TOPICAL ONE (14:33)
[2018-06-22] MEDS ORDERED: Gelfoam 12-7 ADSORBABL SPONGE* 1 EA SPONGE ONE (14:42)
--- NOTE | 2018-06-24 07:08 | UC ---
Discharge - Sign-Out/Discharge Documenting (check all that apply): Post-Discharge Follow Up All imaging exams completed and their final reports reviewed: No Studies - Discharge Plan Condition: Stable Disposition: HOME Patient Education Materials: Laceration (ED), Acute Wound Care (ED), Low- Sodium Diet (ED) Referrals: Eri Sinclair MD [Primary Care Provider] - 2 Days Additional Instructions: 1- bleeding has stopped. Please keep Gel foam in place and continue applying pressure. If it fall off while you urinate, please apply the one dispensed and directed. Keep wound clean and dry 2- If bleeding returns w/ continues to be active, please go to the ER immediately for further management. 3-Your BP is elevated today. please decrease salt in your diet, monitor BP and if it continues to be elevated please f/u with your PCP for further management - Billing Disposition and Condition Condition: STABLE Disposition: Home
== END 2018-06-22 14:54 | disposition home or self-care (01) ==
LOC: UCEAST 12:10
DX: N94.89 Other specified conditions associated with female genital organs and menstrual cycle (principal)
CPT/HCPCS: 12001; 99211; A9270-GY; G0463

== ENCOUNTER 2019-05-01 19:19 | Emergency (ER) | payer OTHER ==
[2019-05-01 19:49] VITALS: BP 132/93
--- NOTE | 2019-05-01 20:23 | UC ---
Respiratory Complaint HPI - HPI Summary HPI Summary: Pt presents with c/o sudden onset of dry, hacking, cough x 2 days. Denies nasal congestion, fever, chills c/o of "chest tenderness" and worsening of cough in recumbent position. - History of Current Complaint Chief Complaint: UCGeneralIllness Stated Complaint: COUGH Time Seen by Provider: 05/01/19 20:16 Hx Obtained From: Patient Hx Last Menstrual Period: 28 days ago ?: No Onset/Duration: Sudden Onset, Lasting Days, Still Present, Worse Since - onset Timing: Intermittent Episodes Severity Initially: Mild Severity Currently: Moderate Pain Intensity: 3 Character: Cough: Nonproductive Aggravating Factors: Exertion, Deep Breaths, Recumbent Position Alleviating Factors: Nothing Associated Signs And Symptoms: Positive: Wheezing - Risk Factors Pulmonary Embolism Risk Factors: Oral Contraceptives Cardiac Risk Factors: Negative Pseudomonas Risk Factors: Negative Tuberculosis Risk Factors: Negative - Allergies/Home Medications Allergies/Adverse Reactions: Allergies Allergy/AdvReac Type Severity Reaction Status Date / Time No Known Allergies Allergy Verified 05/01/19 19:41 Home Medications: Home Medications Aspirin/Acetaminophen/Caffeine [Excedrin Extra Strength Caplet] 2 each PO DAILY PRN 05/01/19 [History Confirmed 05/01/19] Dextromethorphan Hb/Doxylamine [Night Time Cough Liquid] 1 udc PO BEDTIME PRN [History Confirmed 05/01/19] Ethinyl Estradiol/Drospirenone [Lorie 28 Tablet] 1 each PO DAILY 05/01/19 [ History Confirmed 05/01/19] GuaiFENesin DM* [Robitussin DM*] 10 ml PO Q6H PRN 05/01/19 [History Confirmed ] Ibuprofen/Pseudoephedrine HCl [Advil Cold & Sinus Caplet] 1 tab PO Q4H PRN 05/01 [History Confirmed 05/01/19] Lisinopril TAB* [Prinivil TAB 10 MG*] 10 mg PO DAILY 05/01/19 [History Confirmed 05/01/19] PMH/Surg Hx/FS Hx/Imm Hx Previously Healthy: Yes Cardiovascular History: Hypertension - Surgical History Surgical History: Yes Surgery Procedure, Year, and Place: HX URINARY STENTS AND LITHOTRIPSY X9 - [facility]. Right shoulder sx--slap tear repair. - Family History Known Family History: Positive: Hypertension - Social History Occupation: Employed Full-time Lives: With Family Alcohol Use: Occasionally Alcohol Amount: 1 PER MONTH Substance Use Type: None Smoking Status (MU): Never Smoked Tobacco Have You Smoked in the Last Year: No - Immunization History Most Recent Influenza Vaccination: none Most Recent Pneumonia Vaccination: none Hx Tetanus, Diphtheria Vaccination: Yes Review of Systems All Other Systems Reviewed And Are Negative: Yes Constitutional: Positive: Fatigue - due to lack of sleep Skin: Positive: Negative Eyes: Positive: Negative ENT: Positive: Sore Throat - resolved Respiratory: Positive: Shortness Of Breath - with exertion, Cough Cardiovascular: Positive: Chest Pain - reproducible Gastrointestinal: Positive: Negative Genitourinary: Positive: Negative Motor: Positive: Negative Neurovascular: Positive: Negative Musculoskeletal: Positive: Negative Neurological: Positive: Negative Psychological: Positive: Negative Is Patient Immunocompromised?: No Physical Exam Triage Information Reviewed: Yes Appearance: Ill-Appearing Vital Signs: Initial Vital Signs Temp 99.1 F 05/01/19 19:46 Pulse 89 05/01/19 19:46 Resp 20 05/01/19 19:46 BP 132/93 05/01/19 19:46 Pulse Ox 99 05/01/19 19:46 Vital Signs Reviewed: Yes Eye Exam: Normal ENT Exam: Normal Dental Exam: Normal Neck exam: Normal Respiratory: Positive: Wheezing Cardiovascular Exam: Normal Musculoskeletal Exam: Normal Neurological Exam: Normal Psychological Exam: Normal Skin Exam: Normal Respiratory Course/Dx - Differential Dx/Diagnosis Differential Diagnosis/HQI/PQRI: Bronchitis Provider Diagnosis: Reactive airway disease that is not asthma Discharge - Sign-Out/Discharge Documenting (check all that apply): Patient Departure All imaging exams completed and their final reports reviewed: No Studies - Discharge Plan Condition: Stable Disposition: HOME Prescriptions: Benzonatate CAP* [Tessalon 100 MG CAP*] 200 mg PO Q8H PRN #30 cap PRN Reason: Cough Montelukast Sodium TAB* [Singulair 10 MG TAB*] 10 mg PO BEDTIME #14 tab predniSONE TAB* [Deltasone 10 MG TAB*] 30 mg PO DAILY #18 tab Patient Education Materials: Reactive Airways Disease (ED) Referrals: Eri Sinclair MD [Primary Care Provider] - If Needed - Billing Disposition and Condition Condition: STABLE Disposition: Home
== END 2019-05-01 20:31 | disposition home or self-care (01) ==
LOC: UCCORT 19:19
DX: J45.909 Unspecified asthma, uncomplicated (principal); I10 Essential (primary) hypertension
CPT/HCPCS: 99212; G0463

== ENCOUNTER 2019-05-04 15:31 | Emergency (ER) | payer OTHER ==
[2019-05-04 15:39] VITALS: BP 135/78
--- NOTE | 2019-05-04 15:46 | UC ---
Respiratory Complaint HPI - HPI Summary HPI Summary: 5 days of cough---visiting here from [place]---Has been on Lisinopril for 6 months---cough sorethorat no fevers,no illness exposures - History of Current Complaint Chief Complaint: UCRespiratory Stated Complaint: RE-CK~COUGH,THROAT COMPLAINT Time Seen by Provider: 05/04/19 15:33 Hx Obtained From: Patient Hx Last Menstrual Period: 04/30/19 ?: No Onset/Duration: Sudden Onset Pain Intensity: 3 Pain Scale Used: 0-10 Numeric Character: Cough: Productive Aggravating Factors: Nothing Alleviating Factors: Nothing - Allergies/Home Medications Allergies/Adverse Reactions: Allergies Allergy/AdvReac Type Severity Reaction Status Date / Time No Known Allergies Allergy Verified 05/04/19 15:40 PMH/Surg Hx/FS Hx/Imm Hx Previously Healthy: No Cardiovascular History: Hypertension - Surgical History Surgical History: Yes Surgery Procedure, Year, and Place: HX URINARY STENTS AND LITHOTRIPSY X9 - [facility]. Right shoulder sx--slap tear repair. - Family History Known Family History: Positive: Hypertension - Social History Occupation: Employed Full-time Lives: With Family Alcohol Use: Occasionally Alcohol Amount: 1 PER MONTH Substance Use Type: None Smoking Status (MU): Never Smoked Tobacco Have You Smoked in the Last Year: No - Immunization History Most Recent Influenza Vaccination: none Most Recent Pneumonia Vaccination: none Hx Tetanus, Diphtheria Vaccination: Yes Review of Systems All Other Systems Reviewed And Are Negative: Yes Constitutional: Positive: Negative Skin: Positive: Negative Eyes: Positive: Negative ENT: Positive: Sore Throat Respiratory: Positive: Cough Cardiovascular: Positive: Negative Gastrointestinal: Positive: Negative Genitourinary: Positive: Negative Motor: Positive: Negative Neurovascular: Positive: Negative Musculoskeletal: Positive: Negative Neurological: Positive: Negative Psychological: Positive: Negative Is Patient Immunocompromised?: No Physical Exam Triage Information Reviewed: Yes Appearance: Well-Appearing, No Pain Distress, Well-Nourished Vital Signs: Initial Vital Signs Temp 97.7 F 05/04/19 15:37 Pulse 92 05/04/19 15:37 Resp 20 05/04/19 15:37 BP 135/78 05/04/19 15:37 Pulse Ox 100 05/04/19 15:37 Vital Signs Reviewed: Yes Eye Exam: Normal Eyes: Positive: Conjunctiva Clear ENT Exam: Normal ENT: Positive: Normal ENT inspection, Hearing grossly normal, Pharynx normal, TMs normal, Uvula midline. Negative: Nasal congestion, Trismus, Muffled voice, Hoarse voice, Dental tenderness, Sinus tenderness Dental Exam: Normal Neck exam: Normal Neck: Positive: Supple, Nontender, No Lymphadenopathy Respiratory Exam: Normal Respiratory: Positive: Chest non-tender, Lungs clear, Normal breath sounds, No respiratory distress, No accessory muscle use Cardiovascular Exam: Normal Cardiovascular: Positive: RRR, No Murmur, Pulses Normal, Brisk Capillary Refill Musculoskeletal Exam: Normal Musculoskeletal: Positive: Strength Intact, ROM Intact Neurological Exam: Normal Neurological: Positive: Alert, Muscle Tone Normal Psychological Exam: Normal Skin Exam: Normal Respiratory Course/Dx - Course Course Of Treatment: will add albuterol and Robitussin AC for HS---did discusss with the patient that this cough maybe caused by her Lisinopril and to discuss this with her provider in [place]---- - Differential Dx/Diagnosis Provider Diagnosis: Cough due to bronchospasm Discharge - Sign-Out/Discharge Documenting (check all that apply): Patient Departure All imaging exams completed and their final reports reviewed: No Studies - Discharge Plan Condition: Stable Disposition: HOME Prescriptions: Albuterol HFA INHALER* [Ventolin HFA Inhaler*] 2 puff INH Q4H PRN #2 mdi PRN Reason: cough guaiFENesin/CODIEN 100MG-10MG* [Robitussin AC 100Mg-10Mg*] 10 ml PO Q4H PRN #90 ml MDD 40 PRN Reason: Cough Patient Education Materials: Bronchospasm (ED) Referrals: rEi Sinclair MD [Primary Care Provider] - If Needed - Billing Disposition and Condition Condition: STABLE Disposition: Home
== END 2019-05-04 16:16 | disposition home or self-care (01) ==
LOC: UCCORT 15:31
DX: J98.01 Acute bronchospasm (principal); I10 Essential (primary) hypertension
CPT/HCPCS: 99212; G0463

== ENCOUNTER 2019-12-24 14:33 | Emergency (ER) | payer OTHER ==
--- OUTSIDE RECORDS SUMMARY | 2019-12-24 14:43 | XMS REPORT | Continuity of Care Document ---
:1980 External Reference #:[id number] Author Name Stefani Calvillo FNP (transmitted by agent of provider Jerome Becker) Address [address] [place] [id number] Care Team Providers Name Role Phone Stefani Calvillo NP - Family Care Team Information [employer] [phone] Problems Active Problems Provider Date Benign essential hypertension Stefani Calvillo FNP Onset: 10/29/2019 Social History Type Date Description Comments Sex Unknown ETOH Use Denies alcohol use Tobacco Use Start: Unknown Patient denies history of smoking Smoking Status Reviewed: 10/29/19 Patient denies history of smoking Allergies, Adverse Reactions, Alerts Description No Known Drug Allergies Medications Active Medications SIG Qnty Indications Ordering Date Provider Prednisone 2 tabs by mouth 10tabs M25.511 Jerome Becker 10/29/2019 20mg Tablets every day Ibuprofen 3 Times A Day as 30tabs Unknown 09/29/2018 600mg Tablets Needed as needed for Pain Sumatriptan Succinate Once as needed 14tabs Unknown 50mg for Migraine Tablets Chlorthalidone 1 by mouth every Unknown 25mg Tablets day Immunizations Description No Information Available Vital Signs Date Vital Result Comment 10/29/2019 4:33pm BP Systolic 154 mmHg BP Diastolic 92 mmHg Body Temperature 97.9 F Heart Rate 77 /min Respiratory Rate 20 /min Weight 218.50 lb O2 % BldC Oximetry 98 % Results Description No Information Available Procedures Description No Information Available Medical Devices Description No Information Available Encounters Type Date Location Provider Dx Diagnosis Office Visit 10/29/2019 [facility] Stefani Calvillo M25.511 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 Heat may be helpful, but do not fall asleep on a heating pad.Follow up with PCP if no impovement by Sunday.Go to the ER if pain becomes severe or you become SOB.S29.011D Strain of muscle and tendon of front wall of thorax, subsequent encounterComments:- Symptoms suggest muscle strain vs contusion. Lungs clear in all ramos.Discussed with patient that getting an xray at this time does not change the treatment plan. She agrees that if symptoms worsen, pain becomes severe, or she develops SOB that she will go to ER for imaging/higher level of care.-Advised to take deep breaths several times per hour to prevent developing pneumonia.- Simple stretches to loosen muscles. Avoid heavy lifting or exertion that worsens pain.- May use heat to tight or sore muscles. Functional Status Description No Information Available Mental Status Description No Information Available Referrals Description No Information Available
[2019-12-24] MEDS ORDERED: NS 0.9% 1000 ML** 1,000 ML IV ONE (16:13)
[2019-12-24] MEDS ORDERED: Ondansetron INJ* 2 MG/ML VIAL IV ONE (16:14)
[2019-12-24] MEDS ORDERED: diPHENhydraMINE PO* 25 MG PO ONE (16:26)
[2019-12-24] MEDS ORDERED: Chlorthalidone TAB* 50 MG PO ONE (16:26)
[2019-12-24] MEDS ORDERED: Ketorolac INJ* 30 MG/ML 1 ML VIAL IV PUSH ONE (16:26)
--- NOTE | 2019-12-24 16:31 | ED ---
Headache - HPI Summary HPI Summary: Pt. is a 39 y.o female who presents to the ER for headache x 4 days. Pt. notes a hx of migraines but states headache feels different than her typical h/a. H/a located to right side of head. Associated sxs of nausea. Past hx of pineal cyst and HTN. Pt. was started on chlorthalidone a few months ago. 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 She went to nurse and BP was high. Pt. notes she has not taken her BP meds in the last two days bc of nausea. Pt. took imitrex today and h/a is currently 3/10. Pt. also notes some tingling in bilateral arms and lower face. Otherwise denies recent illness, fever, cough, abd. pain, urinary sxs. Sxs are moderate in severity. No current modifying factors. - History Of Current Complaint Chief Complaint: EDHeadache Stated Complaint: HIGH BP, HEART PALPITATIONS PER PT Time Seen by Provider: 12/24/19 15:59 Hx Obtained From: Patient Hx Last Menstrual Period: 04/30/19 - Allergies/Home Medications Allergies/Adverse Reactions: Allergies Allergy/AdvReac Type Severity Reaction Status Date / Time No Known Allergies Allergy Verified 12/24/19 14:37 Home Medications: Home Medications SUMAtriptan TAB* [Imitrex TAB*] 50 mg PO DAILY PRN #0 08/22/17 [Rx Confirmed ] Aspirin/Acetaminophen/Caffeine [Excedrin Extra Strength Caplet] 2 each PO DAILY PRN 05/01/19 [History Confirmed 05/04/19] Benzonatate CAP* [Tessalon 100 MG CAP*] 200 mg PO Q8H PRN #30 cap 05/01/19 [Rx Confirmed 05/04/19] Dextromethorphan Hb/Doxylamine [Night Time Cough Liquid] 1 udc PO BEDTIME PRN [History Confirmed 05/04/19] Ethinyl Estradiol/Drospirenone [Lorie 28 Tablet] 1 each PO DAILY 05/01/19 [ History Confirmed 05/04/19] Ibuprofen/Pseudoephedrine HCl [Advil Cold & Sinus Caplet] 1 tab PO Q4H PRN 05/01 [History Confirmed 05/04/19] Lisinopril TAB* [Prinivil TAB 10 MG*] 10 mg PO DAILY 05/01/19 [History Confirmed 05/04/19] Montelukast Sodium TAB* [Singulair 10 MG TAB*] 10 mg PO BEDTIME #14 tab [Rx Confirmed 05/04/19] predniSONE 10 mg TAB [Deltasone 10 MG TAB*] 30 mg PO DAILY #18 tab 05/01/19 [Rx Confirmed 05/04/19] Albuterol HFA INHALER* [Ventolin HFA Inhaler*] 2 puff INH Q4H PRN #2 mdi [Rx] guaiFENesin/CODIENE 100mg/10mg [Robitussin AC 100Mg-10Mg*] 10 ml PO Q4H PRN #90 ml MDD 40 05/04/19 [Rx] PMH/Surg Hx/FS Hx/Imm Hx Previously Healthy: Yes Endocrine/Hematology History: Denies: Hx Diabetes, Hx Thyroid Disease Cardiovascular History: Reports: Hx Hypertension Denies: Other Cardiovascular Problems/Disorders Respiratory History: Denies: Hx Asthma, Hx Chronic Obstructive Pulmonary Disease (COPD), Other Respiratory Problems/Disorders GI History: Denies: Hx Ulcer, Other GI Disorders History: Reports: Hx Kidney Stones - reports x9 Musculoskeletal History: Denies: Other Musculoskeletal History Sensory History: Denies: Hx Contacts or Glasses, Hx Hearing Aid Opthamlomology History: Denies: Hx Contacts or Glasses Neurological History: Reports: Hx Migraine - prn med Denies: Other Neuro Impairments/Disorders - Surgical History Surgery Procedure, Year, and Place: HX URINARY STENTS AND LITHOTRIPSY X9 - [facility]. Right shoulder sx--slap tear repair. Hx Anesthesia Reactions: Yes - WITH SPINAL HAD SEVERE NAUSEA Infectious Disease History: No Infectious Disease History: Denies: Hx Hepatitis, Hx Human Immunodeficiency Virus (HIV), Traveled Outside the [place] in Last 30 Days - Family History Known Family History: Positive: Hypertension, Non-Contributory - Social History Occupation: Employed Full-time Lives: With Family Alcohol Use: Occasionally Alcohol Amount: 1 PER MONTH Substance Use Type: Reports: None Smoking Status (MU): Never Smoked Tobacco Have You Smoked in the Last Year: No Review of Systems Constitutional: Negative Positive: Photophobia ENT: Negative Positive: Palpitations. Negative: Chest Pain Respiratory: Negative Negative: Shortness Of Breath, Cough Positive: Nausea. Negative: Abdominal Pain, Vomiting, Diarrhea Genitourinary: Negative Negative: dysuria Positive: Headache, Paresthesia. Negative: Weakness, Numbness, Syncope, Slurred Speech All Other Systems Reviewed And Are Negative: Yes Physical Exam Triage Information Reviewed: Yes Vital Signs On Initial Exam: Initial Vitals Temp Pulse Resp BP Pulse Ox 97.1 F 75 16 158/105 99 12/24/19 14:34 12/24/19 14:34 12/24/19 14:34 12/24/19 14:34 12/24/19 14:34 Appearance: Positive: Well-Appearing - Pt. sitting up in bed in NAD. Lights are on in room. Pt. appears comfortable. Mother present. Skin: Positive: Warm, Cold Head/Face: Positive: Normal Head/Face Inspection Eyes: Positive: Normal, EOMI, JUAN ALBERTO, Conjunctiva Clear Neck: Positive: Supple, Nontender. Negative: Nuchal Rigidity Respiratory/Lung Sounds: Positive: Clear to Auscultation, Breath Sounds Present Cardiovascular: Positive: Normal, RRR Musculoskeletal: Positive: Normal, Strength/ROM Intact Neurological: Positive: Normal, Alert, Oriented to Person Place, Time, CN Intact II-III, Normal Gait, Heel to Toe - normal, Finger to Nose - normal, Facial Symmetry, Speech Normal. Negative: Pronator Drift Present Psychiatric: Positive: Affect/Mood Appropriate Procedures - Sedation Patient Received Moderate/Deep Sedation with Procedure: No Diagnostics - Vital Signs Vital Signs Temp Pulse Resp BP Pulse Ox 12/24/19 16:03 71 13 159/106 97 12/24/19 16:02 16 12/24/19 14:34 97.1 F 75 16 158/105 99 - Laboratory Result Diagrams: 12/24/19 16:22 12/24/19 16:22 Lab Statement: Any lab studies that have been ordered have been reviewed, and results considered in the medical decision making process. Headache Course/Dx - Course Course Of Treatment: Pt. with h/a x 4 days. She has vague c/o tingling in bilateral arms and lower face. No neuro deficits on exam. BP 140/93. Case discussed with Dr. Pisano and he agrees no repeat imaging needed at this time. Will check basic labs and ECG. Will give migraine cocktail and pt.'s scheduled BP medication since she has not taken in 2 days. ECG done at 1613 shows a sinus rhythm of 64bpm, appropriate intervals. BP improved. On recheck Pt. feeling much better and h/a resolved. Labs unremarkable. Will plan for dc after u/a. Pt. signed out to Tiburcio Klein [facility] for u/a results and dispo. - Diagnoses Differential Diagnosis/HQI/PQRI: Migraine, Tension Headache, Viral Syndrome Provider Diagnoses: Cephalgia, Hypertension Discharge ED - Sign-Out/Discharge Documenting (check all that apply): Patient Departure - Discharge Plan Condition: Improved Disposition: HOME Patient Education Materials: Acute Headache (ED), Hypertension (ED) Referrals: Eri Sinclair MD [Primary Care Provider] - Additional Instructions: Please schedule a close follow up appointment with your PCP and neurologist Take your blood pressure medication daily as directed Return to ER if symptoms change or worsen - Billing Disposition and Condition Condition: IMPROVED Disposition: Home
[2019-12-24 16:32] LABS: ABS Eosinophils 0.1 10^3/ul (0-0.6); ABS Lymphocytes 1.8 10^3/ul (1.0-4.8); ABS Monocytes 0.5 10^3/ul (0-0.8); ABS Neutrophils 4.5 10^3/ul (1.5-7.7); Eosinophil % 0.9 %; Hematocrit 40 % (35-47); Hemoglobin 13.4 g/dL (12.0-16.0); Lymphocyte % 26.9 %; Mean Corpuscular HGB Conc 34 g/dL (31-36); Mean Corpuscular Hemoglobin 30 pg (27-31); Mean Corpuscular Volume 88 fL (80-97); Mean Platelet Volume 9.2 fL (7.4-10.4); Platelet Count 238 10^3/uL (150-450); Red Cell Distribution Width 14 % (10-15); White Blood Count 6.8 10^3/uL (3.5-10.8)
[2019-12-24 16:55] LABS: HCG Pregnancy 0.69 mIU/mL
[2019-12-24 17:17] LABS: Albumin 4.3 g/dL (3.2-5.2); Albumin/Globulin Ratio 1.6 (1-3); C Reactive Protein 3.89 mg/L (<8.01); Calcium 9.8 mg/dL (8.6-10.3); EGFR African American 96.6 (>60); EGFR Non-African American 79.9 (>60); Globulin 2.7 g/dL (2-4); Potassium 3.7 mmol/L (3.5-5.0); Total Bilirubin 0.2 mg/dL (0.2-1.0)
--- NOTE | 2019-12-24 17:36 | ED ---
Progress - Progress Note Progress Note: Pt signed out to me at 1730 on 12/24/2019 by FARHEEN Russo. Patient's discharge was pending urinalysis results. Urinalysis returned showing +1 blood, +3 leukocyte esterase, +2 white blood cells with presence of squamous epithelial cells. It was discussed the patient and she is not having urinary symptoms such as urgency and frequency and this urinalysis appears contaminated. Patient discharged with outpatient follow-up. Course/Dx - Course Course Of Treatment: Pt. with h/a x 4 days. She has vague c/o tingling in bilateral arms and lower face. No neuro deficits on exam. BP 140/93. Case discussed with Dr. Pisano and he agrees no repeat imaging needed at this time. Will check basic labs and ECG. Will give migraine cocktail and pt.'s scheduled BP medication since she has not taken in 2 days. ECG done at 1613 shows a sinus rhythm of 64bpm, appropriate intervals. - Diagnoses Provider Diagnoses: Cephalgia, Hypertension Discharge ED - Sign-Out/Discharge Documenting (check all that apply): Patient Departure - Discharge Plan Condition: Improved Disposition: HOME Patient Education Materials: Acute Headache (ED), Hypertension (ED) Referrals: Eri Sinclair MD [Primary Care Provider] - Additional Instructions: Please schedule a close follow up appointment with your PCP and neurologist Take your blood pressure medication daily as directed Return to ER if symptoms change or worsen - Billing Disposition and Condition Condition: IMPROVED Disposition: Home
[2019-12-24 18:27] LABS: Urine Appearance Cloudy; Urine Bilirubin Negative (Negative); Urine Blood 1+ (Negative); Urine Color Yellow; Urine Glucose Negative (Negative); Urine Ketones Negative (Negative); Urine Nitrite Negative (Negative); Urine Protein Negative (Negative); Urine Specific Gravity 1.013 (1.010-1.030); Urine Urobilinogen Negative (Negative)
[2019-12-24 18:28] LABS: Urine Bacteria 1+ (Absent); Urine Red Blood Cell Trace(0-2/hpf) (Absent); Urine Squamous Epithelial Cell Present (Absent); Urine White Blood Cell 2+(11-20/hpf) (Absent)
[2019-12-24 18:37] VITALS: BP 150/92
== END 2019-12-24 18:36 | disposition home or self-care (01) ==
LOC: ED 14:33
DX: R51 Headache (principal); I10 Essential (primary) hypertension; R11.0 Nausea; R42 Dizziness and giddiness; R20.2 Paresthesia of skin; Z79.899 Other long term (current) drug therapy
CPT/HCPCS: 36415; 80053; 81003; 81015; 84484; 84702; 85025; 86140; 87086; 93005; 96361; 96374; 96375; 99284; A9270-GY; J1885; J2405